=== PATIENT | male | born 1995 | race Caucasian/White ===

== ENCOUNTER 2017-02-01 15:53 | Emergency (ER) | payer MEDICAID ==
[~2017-02-01] VITALS: Ht 172.7 cm; Wt 89.8 kg
[2017-02-01 18:19] VITALS: BP 117/71
== END 2017-02-01 18:19 | disposition home or self-care (01) ==
LOC: ED 15:53
DX: L02.811 Cutaneous abscess of head [any part, except face] (principal); L03.811 Cellulitis of head [any part, except face]

== ENCOUNTER 2018-07-08 19:08 | Emergency (ER) | payer MEDICAID ==
[~2018-07-08] VITALS: Ht 172.7 cm; Wt 82.1 kg
[2018-07-08 19:26] VITALS: Ht 172.7 cm; Wt 82.1 kg
[2018-07-08 23:04] VITALS: BP 136/87
== END 2018-07-08 23:04 | disposition home or self-care (01) ==
LOC: ED 19:08
DX: S61.011A Laceration without foreign body of right thumb without damage to nail, initial encounter (principal); Z88.8 Allergy status to other drugs, medicaments and biological substances; W25.XXXA Contact with sharp glass, initial encounter; Y93.89 Activity, other specified; Y92.89 Other specified places as the place of occurrence of the external cause; Y99.8 Other external cause status
CPT/HCPCS: J2001